=== PATIENT | male | born 1960 ===

== ENCOUNTER 2024-02-13 06:18 | Day surgery (SDC) | payer BC, SELFPAY ==
[2024-01-31 09:27] VITALS: BMI 27.6
[2024-02-13] VITALS (10 sets, daily range): BP systolic 108–151; BP diastolic 59–104; BMI 27.0
[2024-02-13] MEDS: TYLENOL 1000 MG PO (06:33)
[2024-02-13] MEDS: NORMOSOL-R 1000 IV (06:34)
--- NOTE | 2024-02-13 09:04 | W.IMMPOSTOP ---
Surgical Immed Post Op Note
-
Primary Surgeon: Kenton Johnson MD
Assisting Surgeon: None
Pre-op Diagnosis: Right inguinal hernia, possible left inguinal hernia
Post-op Diagnosis: Right inguinal hernia
Procedure Performed: Robotic right inguinal hernia repair with mesh
Anesthesia Type: General
Specimen / Cultures: None
Estimated Blood Loss: 3 cc
Complications: None
Operative Findings: Very small right indirect inguinal hernia, with a medium size cord lipoma. No direct or femoral components. No hernia noted on the left. Floor reinforced with a large right 3D max Bard soft uncoated polypropylene mesh.
POST OP PLAN:
Will discharge after voiding, with an ice pack.
--- NOTE | 2024-02-13 09:05 | OR.RPT ---
Operative Report
Operative Report
Patient Name: Ward Arteaga
: 1960
Date of Operation: 02/13/2024
Preoperative Diagnosis: Reducible Inguinal hernia, right
Postoperative Diagnosis: Same
Procedure(s):
Robotic Inguinal Hernia Repair with mesh, right (SATISH approach)
Surgeon(s):
Dr. Johnson
[employer](s):
ROBERT Joiner
Anesthesia: General
Estimated Blood Loss: 3 cc
Urine Output: None
Drains/Lines/Implants: Large 3D Max Bard mid weight mesh
Specimens: None
Indication for surgery: The patient has a history of groin pain and noted on exam to have a right as well as a possible left inguinal Hernia(s). Following review of therapeutic options they have elected to undergo a minimally invasive repair.
Findings at the time of surgery:
Patient had a small left indirect inguinal Hernia. There was a medium size cord lipoma, no direct or femoral components. The inguinal floor was reinforced with a large BARD 3D max mid-weight uncoated polypropylene mesh
Details of the operation:
The patient was brought to the Operating Room and placed in the supine position with the arms tucked. IV antibiotics were infused and Venodyne stockings placed. Following uneventful induction of general endotracheal anesthesia, an orogastric tube
were placed. The abdomen was prepped and draped in the usual sterile fashion. The abdomen was entered using a Veress technique which required 1 pass(es), pneumoperitoneum to 15 mmHg was obtained without difficulty. A 8mm trochar was passed through
the abdominal wall roughly 20 cm cephalad to the inguinal canal using his prior incision. We then confirmed that no inadvertent injury was made while passing the trocar or Veress needle. We then placed two additional 8 mm ports in the left upper
and right upper quadrants. Though he had previous ports in these quadrants from his prior robotic operation they were not well-positioned 4 hours so were not reused. We then docked the robot with a Prograsper in the left hand port and monopolar
scissors in the right. A small right inguinal hernia was identified no hernia on the left was seen. We then began by creating a flap at the level of the ASIS laterally working our way medially to the medial umbilical fold. Staying onto the
peritoneum we were able to circumferentially dissect around the hernia sac and and peel it off of the underlying spermatic cord and testicular vessels, taking care to preserve them. Medially we identified the midline pubis as well as Brodie's
ligament and ensured to dissect 2 cm below the pubic rim over the bladder. After exposure of the entire myopectineal orifice we identified and reduced: A small sized indirect inguinal hernia, no direct inguinal hernia, no femoral hernia, a medium
cord lipoma, which was removed
We then fixated a large 3D max mid weight mesh with a 2-0 Vicryl stitch at coopers medially and superior laterally. The flap was then closed with a running 2-0 barbed monocryl suture ensuring that the tail was cut flush with the medial fat pad so
that no barbs were exposed. During the closure of the flap an Angiocath was inserted and 20 cc of quarter percent Marcaine was instilled. The area in the flap cavity was then evacuated of air confirming that the mesh was flush and there were no
folds. A small rent in the peritoneum was noted and closed with 2-0 Vicryl. All needles and instruments were then removed and the robot was undocked. The abdomen was then desufflated, and pneumoperitoneum evacuated. All skin sites were then
closed with 4-0 Monocryl followed by Dermabond. Counts were correct and overall, the patient tolerated the procedure well and was taken to the Recovery Room postoperatively in stable condition.
I was the attending physician and performed the procedure with assistance of the PA above. The assistance of Taylor Zamora was required due to the complexity of the procedure. During the procedure Taylor assisted with retraction, passing instruments,
and closure of the wound. I was present for all portions of the case
Kenton Johnson MD
--- NOTE | 2024-02-13 09:09 | W.SUR.PREOP ---
Pre-Operative Surgical Note
-
I have examined this patient prior to the performance of the scheduled procedure.
The patient's condition is unchanged from the time of the current History and
Physical and the patient is able to undergo the scheduled procedure.
[2024-02-13] MEDS: DILAUDID 0.25 MG IV ×3 (09:13→09:45)
== END 2024-02-13 11:36 | disposition home or self-care (01) ==
LOC: SDS 06:18
PROVIDERS: ATTENDING PHYSICIAN Surgery; FAMILY PHYSICIAN Podiatrist Foot & Ankle Surgery
DX: K40.90 Unilateral inguinal hernia, without obstruction or gangrene, not specified as recurrent (principal)
CPT/HCPCS: 49650; 36415; 93005; C1781

== ENCOUNTER → 2024-09-15 06:27 | Day surgery (SDC) | payer BC, SELFPAY | LOC: GI 06:27 | PROVIDERS: ATTENDING PHYSICIAN Surgery | PROC: 0DBL8ZX Excision of Transverse Colon, Via Natural or Artificial Opening Endoscopic, Diagnostic (ICD-10-PCS; 2024-09-15) | DX: Z08 Encounter for follow-up examination after completed treatment for malignant neoplasm (principal); Z85.048 Personal history of other malignant neoplasm of rectum, rectosigmoid junction, and anus; D12.3 Benign neoplasm of transverse colon | CPT/HCPCS: 45380; 88305 ==